=== PATIENT | male | born 2000 | race Hispanic/Latino ===

== ENCOUNTER 2019-05-30 00:41 | Emergency (ER) | payer SELFPAY ==
[2019-05-30] MEDS ORDERED: Ibuprofen 800 MG TAB ONE (00:55)
--- NOTE | 2019-05-30 07:59 | RAD ---
RIGHT SHOULDER 3 VIEWS: HISTORY: Injury. FINDINGS: No evidence of fracture or dislocation. IMPRESSION: No acute finding. POS: [facility]
== END 2019-05-30 01:30 | disposition home or self-care (01) ==
LOC: MADERS 00:41
DX: S43.401A Unspecified sprain of right shoulder joint, initial encounter (principal); J45.909 Unspecified asthma, uncomplicated; F17.210 Nicotine dependence, cigarettes, uncomplicated; Z71.6 Tobacco abuse counseling; V59.9XXA Occupant (driver) (passenger) of pick-up truck or van injured in unspecified traffic accident, initial encounter
CPT/HCPCS: 99406